=== PATIENT | male | born 1945 | race Caucasian/White ===

== ENCOUNTER → 2020-03-07 | Outpatient (CLI) | payer MEDICARE ==
[~2020-03-07] MED LIST: ASPIRIN CHEWABL81 MG PO; CARVEDILOL12.5 MG PO; CATAPRES 0.1MG0.1 MG PO; COREG 25MG TAB25 MG PO; ELIQUIS 5 MG TAB5 MG PO; FLOMAX0.4 MG PO; GLYBURIDE-METF1 EACH PO; HYDROCHLOROTHIA25 MG PO; LEVOTHYROXINE25 MC1 PO; NORVASC10 MG PO; PRAVACHOL40 MG PO
== END ==
LOC: EXRD 11:13
DX: R06.02 Shortness of breath (principal); R91.8 Other nonspecific abnormal finding of lung field
CPT/HCPCS: 71046

== ENCOUNTER → 2020-06-08 | Outpatient (CLI) | payer MEDICARE | LOC: EXRD 14:08 | DX: M19.90 Unspecified osteoarthritis, unspecified site (principal); I10 Essential (primary) hypertension; R91.8 Other nonspecific abnormal finding of lung field; Z86.16 Personal history of COVID-19 | CPT/HCPCS: 36415; 71046; 82565; 82570; 82575 ==